=== PATIENT | male | born 1970 | race Caucasian/White ===

== ENCOUNTER 2017-12-01 21:43 | Emergency (ER) | payer SELFPAY ==
[~2017-12-01] VITALS: Ht 185.4 cm; Wt 94.6 kg
[~2017-12-01 21:43] MED LIST: ATIVAN0.5 MG PO; no home meds
[2017-12-01 21:50] VITALS: BP 107/72
[2017-12-01 22:56] LABS: INFLUENZA A POSITIVE (NONE DETECT); INFLUENZA B NONE DETECTED (NONE DETECT)
[2017-12-01] MEDS ORDERED: CODEINE/GUAIFEN1 SOL PO (23:20)
[2017-12-01] MEDS ORDERED: TAM75CAP PO (23:20)
== END 2017-12-01 23:36 | disposition home or self-care (01) | DRG 153 ==
LOC: ED 21:43
PROVIDERS: Emergency Medicine
DX: J11.1 Influenza due to unidentified influenza virus with other respiratory manifestations (principal); M79.1 Myalgia; R05 Cough; R50.9 Fever, unspecified; R06.2 Wheezing